=== PATIENT | male | born 1955 | race Caucasian/White ===

== ENCOUNTER 2019-01-10 09:08 | Day surgery (SDC) | payer OTHER ==
[2019-01-09 14:11] VITALS: BMI 32.0
--- NOTE | 2019-01-10 13:02 | OP ---
DATE OF PROCEDURE: 01/10/2019 PROCEDURE PERFORMED: Screening colonoscopy. POSTPROCEDURE DIAGNOSIS: Normal screening colonoscopy. ANESTHESIA: TIVA. RECOMMENDATIONS: Repeat screening colonoscopy in 10 years. PROCEDURE IN DETAIL: The patient was informed of the risks, benefits, and possible complications of endoscopy including perforation, reaction to medication, and aspiration. Informed consent was obtained. The patient was brought to the endoscopy suite, where he was sedated by anesthesia. Once he was comfortable, rectal exam performed, which was normal. The endoscope was advanced through the anal canal and through the colon to the cecum, which was identified by the ileocecal valve and appendiceal orifice. The prep was good. Some irrigation was used about 100 mL of sterile water to clear bubbles and some liquid with slow removal. Withdrawal time of 8 minutes. No polyps or lesions were seen. Retroflexed view showed some internal hemorrhoids. The scope was removed. The patient tolerated the procedure well. There were no complications. Job ID: [id number]
[2019-01-10] MEDS ORDERED: PROPOFOL 200 MG/20 ML VIAL ONE (15:21)
== END 2019-01-10 13:30 | disposition home or self-care (01) ==
LOC: SDC 09:08
PROVIDERS: ATTEND Internal Medicine Gastroenterology
PROC: 0DJD8ZZ Inspection of Lower Intestinal Tract, Via Natural or Artificial Opening Endoscopic (ICD-10-PCS; principal; 2019-01-10)
DX: R19.5 Other fecal abnormalities (principal); K64.8 Other hemorrhoids; E07.9 Disorder of thyroid, unspecified; J45.909 Unspecified asthma, uncomplicated; R73.03 Prediabetes; Z87.891 Personal history of nicotine dependence; Z79.82 Long term (current) use of aspirin; Z79.84 Long term (current) use of oral hypoglycemic drugs; Z79.899 Other long term (current) drug therapy; Z88.8 Allergy status to other drugs, medicaments and biological substances
CPT/HCPCS: J2704

== ENCOUNTER 2019-07-19 12:39 | Outpatient (CLI) | payer OTHER ==
--- NOTE | 2019-07-19 14:08 | MRI ---
MRI Lower Ext Jt Rt WO Con History: M 23.91 internal derangement of right knee Comparison: Recent outside facility radiographs Findings: Medial meniscus: Undersurface flap tear posterior horn body junction medial meniscus extend ing to the root attachment with gutter extrusion. There is also a radial oblique tear of the medial meniscal body extending from the free edge to the intermediate zone. Lateral meniscus: Small radial oblique tear posterior horn lateral meniscus involving the free edge a nd intermediate zone. There is also mild blunting of the lateral meniscal body without displaced fibers. No significant lateral gutter extrusion. ACL, PCL, MCL and LCL are intact. Extensor mechanism: The quadriceps tendon, patella, and patellar tendon are intact. Cartilage: Patellofemoral compartment: Involving the superior patellar apex as well as the medial patellar facet are multiple full-thickness cartilage fissures with subcortical reactive marrow changes. Medial compartment: No full-thickness defect. 50% chondral loss and fraying throughout the medial com partment with a few high-grade fissures. Lateral compartment: Few 50% chondral fissures as well as the intercondylar delamination posterior ar ticular surface lateral femoral condyle without full-thickness defect. There are also a few high-grade chondral fissures of the central weightbearing surface lateral tibial plateau. Bones: Low-grade edema submeniscal medial tibial rim. Muscles: Muscle signal and bulk is normal. Soft tissues: Small to moderate joint effusion. Low-grade synovitis. No free bodies are appreciated. Small popliteus bursa effusion. Impression: 1. Undersurface flap tear body and posterior horn medial meniscus extending to the root attachment wi th medial gutter extrusion of the flap fragment. There is loss of hoop stress and multifocal grade 3/4 chondromalacia. 2. Incomplete radial oblique tear medial meniscal body from involving the free edge and intermediate zone. 3. Small radial oblique tear posterior horn lateral meniscus extending from the free edge to the inte rmediate zone. 4. Mild loss of volume and blunting lateral meniscal body. 5. Few foci of medial patellar facet grade IV chondromalacia. 6. Scattered foci of grade III chondromalacia medial and lateral compartments.
== END 2019-07-19 12:40 | disposition home or self-care (01) ==
LOC: BICMRI 12:39
PROVIDERS: ATTEND Orthopaedic Surgery
DX: M23.91 Unspecified internal derangement of right knee (principal); M94.261 Chondromalacia, right knee; S83.241A Other tear of medial meniscus, current injury, right knee, initial encounter

== ENCOUNTER 2019-10-11 08:33 | Outpatient (CLI) | payer OTHER ==
[2019-10-11 14:22] LABS: #Basophils 0.1 thou/uL (0.0-0.2); #Eosinphils 0.4 thou/uL (0.0-0.7); #Lymphocytes 2.6 thou/uL (1.20-3.40); #Monocytes 0.8 thou/uL (0.11-0.59); #Neutrophils 3.2 thou/uL (1.40-6.50); %Basophils 1.9 % (0.0-1.0); %Eosinophils 5.3 % (0.0-10.0); %Lymphocytes 36.7 % (21.0-51.0); %Monocytes 10.7 % (0.0-10.0); %Neutrophils 45.5 % (42.0-75.0); Hemoglobin 16.6 g/dL (14.0-18.0); Mean Corpuscular HGB CONC 33.8 g/dL (32.0-36.0); Mean Corpuscular Hemoglobin 34.5 pg (27.0-31.0); Mean Platelet Volume 7.7 fL (7.4-10.4); Platelet Count 240 thou/uL (130-400); RBC Distribution Width 11.6 % (11.5-14.5); Red Blood Cell (RBC) Count 4.82 mill/uL (4.70-6.10); White Blood Cell (WBC) Count 7.1 thou/uL (4.8-10.8)
[2019-10-11 14:32] LABS: Prothrombin Time 13.5 SEC (12.0-14.7)
[2019-10-11 14:38] LABS: Bacteria/HPF None Seen HPF (None Seen); Bilirubin Negative (Negative); Blood, Urine Negative (Negative); Clarity Clear (Clear); Glucose, Urine (Dipstick) Normal (Negative); Leukocyte Negative Leu/uL (Negative); Nitrite Negative (Negative); Protein, Urine (Dipstick) Negative (Neg-Trace); RBC/HPF None Seen HPF (0-3); Squamous Epithelial None Seen HPF (0-3); Urobilinogen Normal mg/dL (Less than 2); WBC/HPF 0-3 HPF (0-3)
[2019-10-11 14:45] LABS: Anion Gap 14 mmol/L (10-20); BUN (Urea Nitrogen) 11 mg/dL (8.4-25.7); Calc. Creatinine Clearance 0 mL/min (70-130); Calcium 9.3 mg/dL (7.8-10.44); Carbon Dioxide 25 mmol/L (23-31); Chloride 104 mmol/L (98-107); Estimated GFR-MDRD 90; Glucose 94 mg/dL (80-115); Potassium 3.9 mmol/L (3.5-5.1); Sodium 139 mmol/L (136-145)
== END 2019-10-11 08:34 | disposition home or self-care (01) ==
LOC: LABBT 08:33
PROVIDERS: ATTEND Orthopaedic Surgery
DX: Z01.818 Encounter for other preprocedural examination (principal); M21.952 Unspecified acquired deformity of left thigh
CPT/HCPCS: 80048; 81001; 85025; 85610; 87081; 93005; 93010

== ENCOUNTER 2019-10-11 13:00 | Inpatient (IN) | payer OTHER ==
[2019-10-11 12:20] VITALS: BMI 33.1
--- NOTE | 2019-10-18 09:04 | HP ---
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 His symptoms became worse on the left side approximately a year ago after moving some boxes and twisting his knee. He has had progressive pain and popping and sensation of instability despite rest, restriction of activities, anti-inflammatory medications and cortisone injection. The pain is now interfering with day-to-day activities including walking, getting dressed, working and sleeping. PAST MEDICAL HISTORY: The patient has a history of thyroid replacement and type 2 diabetes. CURRENT MEDICATIONS: 1. Synthroid. 2. Glucophage. 3. Low-dose aspirin. 4. Voltaren Gel. ALLERGIES: HE IS ALLERGIC TO VALIUM. HE DOES HAVE A HISTORY OF EARLY DEGENERATIVE ARTHRITIS AND DEGENERATIVE MEDIAL MENISCAL TEAR OF THE RIGHT KNEE, WHICH HAS IMPROVED WITH CONSERVATIVE TREATMENT. FAMILY HISTORY: Otherwise unremarkable. SOCIAL HISTORY: Otherwise unremarkable. REVIEW OF SYSTEMS: Otherwise unremarkable. PHYSICAL EXAMINATION: GENERAL: This is a healthy male. HEENT: Unremarkable. NECK: Supple. CHEST: Clear. HEART: Regular rate and rhythm. ABDOMEN: Soft and nontender. RECTAL: Deferred. GENITAL: Deferred. EXTREMITIES: Pertinent findings in the left knee; there is slight varus, there is no effusion, there is tenderness and crepitus over the medial joint line, range of motion is 0 to 130 degrees and has a slight left antalgic gait. NEUROVASCULAR: Neurovascular exam is intact. There are palpable distal pulses. DIAGNOSTIC DATA: X-rays of the left knee reveal narrowing medially. There is a large osteochondral defect of the left knee in the weightbearing surface of medial femoral condyle, which has progressed from previous x-rays and could suggest early osteonecrosis. There are mild degenerative changes of the right knee and previous MRI scan of the right knee reveals a degenerative medial meniscal tear. IMPRESSION: 1. Degenerative arthritis, possible osteonecrosis femoral condyle, left knee. 2. Type 2 diabetes. 3. History of thyroid replacement. 4. Degenerative medial meniscal tear, right knee. PLAN: Left total knee replacement. The nature of the surgery, length, recovery, and potential complications such as infection, loss of motion, incomplete relief, thromboembolic phenomena, neurovascular injury, delayed wound healing, possible transfusion, need for revision have been discussed in detail with the patient and his . Job ID: [id number]
[2019-10-22] MEDS ORDERED: Sodium Chloride 0.9% 100 ML ONE ×2 (05:57→08:55)
[2019-10-22] MEDS ORDERED: Vancomycin 1.5 GRAM/300 ML BAG 1.5 GM/300 ML BAG ONE (05:57)
[2019-10-22] MEDS ORDERED: Tranexamic Acid 1,000 MG/10 ML VIAL ONE ×2 (05:57→08:53)
[2019-10-22] MEDS ORDERED: Fentanyl 100 MCG/2 ML VIAL ONE ×4 (06:04→09:08)
[2019-10-22] MEDS ORDERED: Bupivacaine 0.25% HCL 30 ML VIAL ONE (06:27)
[2019-10-22] MEDS ORDERED: Lidocaine 1% w/Epinephrine 1:100K 20 ML VIAL ONE (06:27)
[2019-10-22] MEDS ORDERED: Lidocaine 1% (PF) 30 ML VIAL ONE (06:30)
[2019-10-22] MEDS ORDERED: Midazolam HCl 2 mg/2 ml Vial ONE (06:30)
[2019-10-22] MEDS ORDERED: Zolpidem Tartrate 5 MG TAB PO PRN ×2 (07:05→10:11)
[2019-10-22] MEDS ORDERED: traMADol HCl 50 MG TAB PO PRN ×2 (07:05)
[2019-10-22] MEDS ORDERED: Ropivacaine HCl/PF 250 ML in Premix Bag 1 BAG NERVE BLCK SCH (07:05)
[2019-10-22] MEDS ORDERED: Acetaminophen 325 MG TAB PO PRN ×2 (07:05→10:11)
[2019-10-22] MEDS ORDERED: Promethazine HCl 25 MG/ML VIAL IM PRN (07:05)
[2019-10-22] MEDS ORDERED: Ondansetron PF 4 MG/2 ML Vial IVP PRN ×2 (07:05→10:11)
[2019-10-22] MEDS ORDERED: HYDROcodone/Acetaminophen 10/325 mg Tablet PO PRN ×3 (07:05→10:11)
[2019-10-22] MEDS ORDERED: Fentanyl 100 MCG/2 ML VIAL SLOW IVP PRN ×3 (07:06→10:11)
[2019-10-22] MEDS ORDERED: Tranexamic Acid 1,000 MG in Sodium Chloride 0.9% 100 ML IVPB SCH ×2 (09:00→10:11)
[2019-10-22] MEDS ORDERED: Lidocaine 1% PF 5 ML VIAL ONE (09:01)
[2019-10-22] MEDS ORDERED: PROPOFOL 200 MG/20 ML VIAL ONE (09:01)
[2019-10-22] MEDS ORDERED: PHENYLEPHRINE-NS 100 MCG/ML 10 ML SYRINGE ONE (09:01)
[2019-10-22] MEDS ORDERED: Ropivacaine 0.2% HCl/PF (40 MG/20 ML VIAL) ONE (09:01)
[2019-10-22] MEDS ORDERED: ePHEDrine/0.9% NaCl/PF SYRINGE 50 mg/10 ml ONE (09:01)
[2019-10-22] MEDS ORDERED: Bupivacaine HCl 0.5%/Epinephrine 1:200,000/PF 30 ml Vial ONE (09:01)
[2019-10-22] MEDS ORDERED: Ondansetron PF 4 MG/2 ML Vial ONE (09:01)
[2019-10-22] MEDS ORDERED: Ketorolac Tromethamine 30 MG/ML VIAL ONE (09:01)
--- NOTE | 2019-10-22 09:22 | OP ---
DATE OF PROCEDURE: 10/22/2019 PIN BALL MACHINE MECHANIC: Esther Sanchez PA-C ANESTHESIA: General plus adductor canal and sciatic nerve blocks. PREOPERATIVE DIAGNOSIS: Degenerative arthritis, left knee. POSTOPERATIVE DIAGNOSIS: Degenerative arthritis, left knee. PROCEDURE PERFORMED: Left total knee replacement with computer-assisted navigation with cemented Pebbles Triathlon components (#5 femoral component, #5 tibial base plate, with 9 mm CS plastic insert, and all-plastic A32 patellar component). DESCRIPTION OF PROCEDURE: After satisfactory anesthesia was induced in supine position, sequential compression device was placed on the nonoperative leg throughout the procedure. The right leg was then prepped and draped in routine sterile fashion. The leg was elevated and exsanguinated with an Esmarch bandage and the tourniquet inflated to 300 mmHg. A gently curved medial parapatellar incision was made, carried down to subcutaneous tissues and bleeding points were controlled with Bovie cautery. Medial parapatellar arthrotomy was performed. Patella was dislocated laterally and portions of the fat pad were excised for exposure. There was tricompartmental degenerative arthritis in the knee and a large area of impending collapse of the medial femoral condyle weightbearing surface. Meniscal remnants and osteophytes were removed. Using the Sellvana pinless navigation system and the appropriate guides, the distal femoral and proximal tibial articular surfaces were excised with an oscillating saw to accept the trial components. It was felt the #5 femoral component, #5 primary tibial baseplate with 9 mm CS plastic insert gave appropriate size, fit, and stability. The patellar articular surface was excised to accept all-plastic A32 patellar component. There was good range of motion and good patellar tracking. The trial components were removed. The knee was copiously irrigated with pulsatile lavage. The bony surfaces were thoroughly cleaned and dried. The permanent components were then cemented in a single stage using one pack of cement premixed with 1 g of tobramycin powder. Excess cement was removed. There was again good fit and stability of the components. The knee was again copiously irrigated. The medial retinaculum and quadriceps mechanism were closed with interrupted #2 Vicryl and a running #2 Quill. The skin was infiltrated with a mixture of 30 mL of 0.25% Marcaine and 30 mL of 1% lidocaine with epinephrine. The subcutaneous tissues were closed with a running 0 Quill suture. The skin was closed with a running subcuticular 3-0 Monoderm and SurgiSeal skin adhesive. A sterile bulky compressive dressing was applied. The tourniquet deflated after 68 minutes. The foot promptly pinked up. Sequential compression device was applied to the operated leg and he was awakened and taken to the recovery room in stable condition. There were no apparent intraoperative complications. ESTIMATED BLOOD LOSS: Less than 100 mL. Job ID: [id number]
[2019-10-22] MEDS ORDERED: diphenhydrAMINE 25 MG CAP PO PRN (10:11)
[2019-10-22] MEDS ORDERED: Promethazine HCl 25 MG/ML VIAL SLOW IVP PRN (10:11)
--- NOTE | 2019-10-22 10:21 | RAD ---
LEFT KNEE 2 VIEWS: INDICATION: History of postoperative left knee: FINDINGS: There is a left knee prosthesis that projects in the expected position without gross evidence of comp lication. There is scattered intraarticular and periarticular soft tissue gas consistent with the madan harper's recent postoperative state. IMPRESSION: Postoperative left knee. POS: CET
[2019-10-22] MEDS: Sodium Chloride 0.9% 1,000 ML IV SCH ×2 (11:23→21:13)
[2019-10-22] MEDS ORDERED: Ketorolac Tromethamine 30 MG/ML VIAL IVP SCH ×2 (12:00)
[2019-10-22] MEDS: Ketorolac Tromethamine 30 MG/ML VIAL IVP SCH ×2 (14:06→21:20)
[2019-10-22] MEDS: CEFAZOLIN 2 GM in Premix Bag 1 BAG IVPB SCH ×2 (14:06→21:20)
[2019-10-22] MEDS ORDERED: Dextrose 5% in Water 1,000 ML IV PRN (15:00)
[2019-10-22] MEDS ORDERED: Dextrose 50% Abboject 50 ML SYRINGE SLOW IVP PRN (15:00)
[2019-10-22] MEDS ORDERED: HumaLOG 300 UNITS/3 ML VIAL SC PRN (15:00)
--- NOTE | 2019-10-22 15:03 | PDOC.HOSPP ---
- Subjective Encounter Date: 10/22/19 Encounter Time: 13:30 Subjective: no sob or chest pain or palp left knee is still numb - Objective Vital Signs & Weight: Vital Signs (12 hours) Temp Pulse Resp BP Pulse Ox 10/22/19 09:55 97.7 F 72 18 124/84 100 Weight Weight 218 lb I&O: 10/21/19 10/22/19 10/23/19 06:59 06:59 06:59 Output Total 300 Balance -300 Hospitalist ROS - Medication Medications: Active Medications Generic Name Dose Route Start Last Admin Trade Name Freq PRN Reason Stop Dose Admin Cefazolin Sodium/Dextrose 2 gm 50 mls @ 100 mls/hr 10/22/19 14:00 10/22/19 14 :06 / Device IVPB 10/22/19 22:29 50 mls Q8HR DC Administration Sodium Chloride 1,000 mls @ 100 mls/hr 10/22/19 10:11 10/22/19 11:23 Normal Saline 0.9% IV Not Given .Q10H DC Ketorolac Tromethamine 30 mg 10/22/19 15:00 10/22/19 14:06 Toradol IVP 10/27/19 12:01 30 mg 0300,0900,1500,2100 DC Administration - Exam General Appearance: awake alert Eye: PERRL, anicteric sclera ENT: no oropharyngeal lesions, moist mucosa Neck: supple, no JVD Heart: RRR, no murmur Respiratory: no wheezes, no rales Gastrointestinal: soft, non-tender, non-distended, normal bowel sounds Extremities: no cyanosis, no edema Neurological: cranial nerve grossly intact, no focal deficits Hosp A/P (1) DM type 2 (diabetes mellitus, type 2) Status: Chronic Qualifiers: Diabetes mellitus intermediate school teacher insulin use: without intermediate school teacher use (2) Hypothyroidism Code(s): E03.9 - HYPOTHYROIDISM, UNSPECIFIED Status: Chronic (3) Status post total knee replacement, left Code(s): Z96.652 - PRESENCE OF LEFT ARTIFICIAL KNEE JOINT Status: Acute - Plan is on asp bid, metformin low dose daily, humalog sliding scale, synthroid continue ropivacaine nr block, toradol/fentanyl/norco prn, gentle iv hydration post op exercises per ortho adv hemostable
[2019-10-22] MEDS ORDERED: Vancomycin 1.5 GRAM/300 ML BAG 1.5 GM in Premix Bag 1 BAG IVPB SCH (18:00)
[2019-10-22] MEDS: Aspirin 81 mg Enteric Coated Tablet PO SCH (21:18)
[2019-10-22] MEDS: HYDROcodone/Acetaminophen 10/325 mg Tablet PO PRN (21:18)
[2019-10-22] MEDS: Senokot S 8.6-50 MG TAB PO SCH (21:19)
[2019-10-23] MEDS: Ketorolac Tromethamine 30 MG/ML VIAL IVP SCH ×3 (03:30→14:09)
[2019-10-23] MEDS: HYDROcodone/Acetaminophen 10/325 mg Tablet PO PRN (03:31)
[2019-10-23 05:14] LABS: Mean Corpuscular HGB CONC 33.5 g/dL (32.0-36.0); Mean Corpuscular Hemoglobin 33.8 pg (27.0-31.0); Mean Platelet Volume 7.4 fL (7.4-10.4); Platelet Count 165 thou/uL (130-400); RBC Distribution Width 11.4 % (11.5-14.5); Red Blood Cell (RBC) Count 4.15 mill/uL (4.70-6.10); White Blood Cell (WBC) Count 8.7 thou/uL (4.8-10.8)
[2019-10-23] MEDS ORDERED: Levothyroxine Sodium 25 MCG TAB PO SCH (06:00)
[2019-10-23] MEDS ORDERED: Levothyroxine Sodium 112 MCG TAB PO SCH (06:00)
[2019-10-23] MEDS: Sodium Chloride 0.9% 1,000 ML IV SCH (07:18)
[2019-10-23] MEDS: Senokot S 8.6-50 MG TAB PO SCH (08:58)
[2019-10-23] MEDS: Aspirin 81 mg Enteric Coated Tablet PO SCH (08:59)
[2019-10-23] MEDS ORDERED: metFORMIN 500 MG TAB PO SCH (09:00)
[2019-10-23] MEDS ORDERED: Multivitamin W/ Minerals 1 TAB PO SCH (09:00)
[2019-10-23] MEDS ORDERED: Ropivacaine 0.2% 550 ML 550 ML NERVE BLCK SCH (09:45)
[2019-10-23 12:51] VITALS: BP 148/87; TEMP 97.9
== END 2019-10-23 16:30 | disposition home or self-care (01) | DRG 470 ==
LOC: SJJU 10-22 05:27
PROVIDERS: ADMIT Orthopaedic Surgery; ATTEND Orthopaedic Surgery
PROC: 0SRD0J9 Replacement of Left Knee Joint with Synthetic Substitute, Cemented, Open Approach (ICD-10-PCS; principal; 2019-10-22)
PROC: 8E0YXBZ Computer Assisted Procedure of Lower Extremity (ICD-10-PCS; 2019-10-22)
DX: M17.12 Unilateral primary osteoarthritis, left knee (principal); E11.9 Type 2 diabetes mellitus without complications; E03.9 Hypothyroidism, unspecified; Z88.8 Allergy status to other drugs, medicaments and biological substances
CPT/HCPCS: 36415; 36416; 85027; A4306; C1713; C1776; J0670; J0690; J1885; J2001; J2250; J2405; J2704; J2795; J3010; J3490; S0020